=== PATIENT | male | born 1995 | race Caucasian/White ===

== ENCOUNTER 2017-11-07 19:34 | Emergency (ER) | payer OTHER ==
[2017-11-07 19:45] VITALS: BP 151/88
--- NOTE | 2017-11-07 20:01 | ED Physician Documentation ---
PD HPI NECK PAIN - Stated complaint Stated Complaint: NECK INJ - Chief complaint Chief Complaint: Back Pain - History obtained from History obtained from: Patient - History of Present Illness Timing - onset: Today (Healthy [employer] gentleman with stretching tonight and felt a pop in his neck and then his entire scalp on both sides went numb associated with feeling shaky and out of control of his hands. The numbness of his scalp bilaterally continues but the rest of his symptoms have resolved.) Review of Systems Constitutional: denies: Fever, Chills GI: denies: Abdominal Pain, Nausea, Vomiting Skin: denies: Rash, Lesions Musculoskeletal: denies: Back pain PD PAST MEDICAL HISTORY - Present Medications Home Medications: Ambulatory Orders Medication Instructions Recorded Confirmed No Known Home Medications 11/07/17 11/07/17 - Allergies Allergies/Adverse Reactions: Allergies Allergy/AdvReac Type Severity Reaction Status Date / Time No Known Drug Allergies Allergy Verified 11/07/17 19:45 PD ED PE NORMAL - Vitals Vital signs reviewed: Yes - General General: Alert and oriented X 3, No acute distress - HEENT HEENT: PERRL, EOMI, Pharynx benign - Neck Neck: Supple, no meningeal sign, No bony TTP - Neuro Neuro: Alert and oriented X 3, radiologic therapist 2-12 intact, No motor deficit, No sensory deficit, Normal speech, Other (Negative Romberg, cranial nerves normal with the exception of #1 which was not tested.) Eye Opening: Spontaneous Motor: Obeys Commands Verbal: Oriented GCS Score: 15 - Psych Psych: Normal mood, Normal affect Results - Vitals Vitals: Vital Signs - 24 hr 11/07/17 19:43 Temperature 36.5 C Heart Rate 61 Respiratory 18 Rate Blood Pressure 151/88 H O2 Saturation 95 Oxygen O2 Source Room air PD MEDICAL DECISION MAKING - Sepsis Event Vital Signs: Vital Signs - 24 hr 11/07/17 19:43 Temperature 36.5 C Heart Rate 61 Respiratory 18 Rate Blood Pressure 151/88 H O2 Saturation 95 Oxygen O2 Source Room air Departure - Departure Disposition: 01 Home, Self Care Clinical Impression: Injury of neck Qualifiers: Encounter type: initial encounter Qualified Code(s): S19.9XXA - Unspecified injury of neck, initial encounter Condition: Good Record reviewed to determine appropriate education?: Yes Instructions: ED Sprain Strain Neck Comments: Your blood pressure was elevated today on check into the emergency department. This does not mean that you have hypertension, it is a common phenomenon to come to the emergency department and have elevated blood pressure. I recommend that you see your primary care physician within the week to have it rechecked when you are feeling better.
--- NOTE | 2017-11-07 21:18 | XRAY Report ---
Reason: neck pain Procedure Date: 11/07/2017 Accession Number: [id number] / [id number] Procedure: XR - Cervical Spine 2 View CPT Code: FULL RESULT: EXAM: CERVICAL SPINE RADIOGRAPHY EXAM DATE: 11/07/2017 08:46 PM. CLINICAL HISTORY: Neck pain. COMPARISONS: None. TECHNIQUE: 3 views. FINDINGS: Alignment: Normal. No spondylolisthesis or scoliosis. Bones: The cervical vertebral bodies and posterior elements are well visualized from the skull base through C7-T1. No fractures or bone lesions. Disks: Normal. Disk heights are maintained. Facets: No degenerative disease. Soft Tissues: Normal. No prevertebral soft tissue swelling. The visualized lung apices are clear. IMPRESSION: Normal cervical spine radiography. [facility]
== END 2017-11-07 21:29 | disposition home or self-care (01) ==
LOC: ED 19:34
DX: S19.9XXA Unspecified injury of neck, initial encounter (principal); X50.1XXA Overexertion from prolonged static or awkward postures, initial encounter; R20.0 Anesthesia of skin; Y93.89 Activity, other specified; Y99.1 Military activity
CPT/HCPCS: 72040; 99282

== ENCOUNTER 2018-02-13 16:04 | Emergency (ER) | payer OTHER ==
[2018-02-13 16:11] VITALS: BP 146/80
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
== END 2018-02-13 17:09 | disposition home or self-care (01) ==
LOC: ED 16:04
DX: S92.321A Displaced fracture of second metatarsal bone, right foot, initial encounter for closed fracture (principal); W22.09XA Striking against other stationary object, initial encounter; Y93.I9 Activity, other involving external motion; Y92.828 Other wilderness area as the place of occurrence of the external cause
CPT/HCPCS: 29515; 99283

== ENCOUNTER 2018-05-25 13:04 | Emergency (ER) | payer OTHER ==
[2018-05-25 13:09] VITALS: BP 141/81
--- NOTE | 2018-05-25 13:42 | ED Physician Documentation ---
PD HPI ABD PAIN - Stated complaint Stated Complaint: MALE - Chief complaint Chief Complaint: Abd Pain - History obtained from History obtained from: Patient - History of Present Illness Timing - onset: Other (2.5 days of gradual onset right testicular pain and swelling that is worse with walking. No concern for STDs on his part. No fevers or chills. It hurts a little worse when he urinates.) Review of Systems Constitutional: denies: Fever, Chills GI: denies: Abdominal Pain, Nausea, Vomiting : reports: Dysuria. denies: Frequency, Hesitancy PD PAST MEDICAL HISTORY - Past Surgical History Past Surgical History: Yes Cardiovascular: Other - Present Medications Home Medications: Ambulatory Orders Medication Instructions Recorded Confirmed Ciprofloxacin HCl [Cipro] 500 mg PO BID #14 tablet 05/25/18 - Allergies Allergies/Adverse Reactions: Allergies Allergy/AdvReac Type Severity Reaction Status Date / Time No Known Drug Allergies Allergy Verified 05/25/18 13:09 - Social History Does the pt smoke?: No Smoking Status: Never smoker PD ED PE NORMAL - Vitals Vital signs reviewed: Yes - General General: Alert and oriented X 3, No acute distress - Abdomen Abdomen: Normal bowel sounds, Soft, Non tender - Male Male : Other (Right testicle is mildly tender especially superiorly, normal lie and normal cremaster reflexes. I do not appreciate any redness.) - Neuro Neuro: Alert and oriented X 3, Normal speech - Psych Psych: Normal mood, Normal affect Results - Vitals Vitals: Vital Signs - 24 hr 05/25/18 13:07 Temperature 36.2 C L Heart Rate 71 Respiratory 15 Rate Blood Pressure 141/81 H O2 Saturation 99 Oxygen O2 Source Room air - Labs Labs: Laboratory Tests 05/25/18 05/25/18 05/25/18 13:25 13:45 13:45 WBC 6.6 RBC 4.98 Hgb 15.4 Hct 44.3 MCV 88.9 MCH 30.9 MCHC 34.7 RDW 12.7 Plt Count 195 MPV 8.4 Neut # (Auto) 4.4 Lymph # (Auto) 1.7 [place] # (Auto) 0.4 Eos # (Auto) 0.1 Baso # (Auto) 0.0 Absolute Nucleated RBC 0.00 Nucleated RBC % 0.0 Sodium 137 Potassium 3.9 Chloride 101 Carbon Dioxide 27 Anion Gap 9.0 BUN 18 Creatinine 0.9 Estimated GFR (MDRD) 105 Glucose 100 Calcium 9.4 Total Bilirubin 1.1 H AST 30 ALT 33 Alkaline Phosphatase 73 Total Protein 7.3 Albumin 4.7 Globulin 2.6 Albumin/Globulin Ratio 1.8 Lipase 32 Urine Color YELLOW Urine Clarity CLEAR Urine pH 6.0 Ur Specific [place] 1.010 Urine Protein NEGATIVE Urine Glucose (UA) NEGATIVE Urine Ketones NEGATIVE Urine Occult Blood NEGATIVE Urine Nitrite NEGATIVE Urine Bilirubin NEGATIVE Urine Urobilinogen 0.2 (NORMAL) Ur Leukocyte Esterase NEGATIVE Ur Microscopic Review NOT INDICATED Urine Culture Comments NOT INDICATED - Rads (name of study) Testicular sono Radiology: EMP read contemporaneously (normal) PD MEDICAL DECISION MAKING - ED course ED course: 22-year-old gentleman with right testicular pain most consistent with epididymitis. His ultrasound is negative, will treat for the clinical diagnosis. The history, physical, and ultrasound are inconsistent with torsion. Departure - Departure Disposition: 01 Home, Self Care Clinical Impression: Testicular pain, right Condition: Good Record reviewed to determine appropriate education?: Yes Instructions: ED Epididymitis Prescriptions: Ciprofloxacin HCl [Cipro] 500 mg PO BID #14 tablet Comments: As discussed this seems like clinical epididymitis. Your ultrasound is negative. Return for new or worsening symptoms or if pain is uncontrolled. [place] if not [place]. Your blood pressure was elevated today on check into the emergency department. This does not mean that you have hypertension, it is a common phenomenon to come to the emergency department and have elevated blood pressure. I recommend that you see your primary care physician within the week to have it rechecked when you are feeling better.
[2018-05-25 13:50] LABS: BASOPHILS % (AUTO) 0.6 %; EOSINOPHILS # (AUTO) 0.1 10^3/uL (0.0-0.7); EOSINOPHILS % (AUTO) 1.5 %; HGB - HEMOGLOBIN 15.4 g/dL (14.0-18.0); LYMPHOCYTES # (AUTO) 1.7 10^3/uL (1.5-3.5); LYMPHOCYTES % (AUTO) 26.3 %; MEAN CORPUSCULAR HEMOGLOBIN 30.9 pg (27.0-31.0); MEAN CORPUSCULAR HGB CONC 34.7 g/dL (32.0-36.0); MEAN CORPUSCULAR VOLUME 88.9 fL (80.0-94.0); MEAN PLATELET VOLUME 8.4 fL (7.4-11.4); MONOCYTES # (AUTO) 0.4 10^3/uL (0.0-1.0); MONOCYTES % (AUTO) 5.7 %; NEUTROPHILS # (AUTO) 4.4 10^3/uL (1.5-6.6); NEUTROPHILS % (AUTO) 65.9 %; PLT - PLATELET COUNT 195 10^3/uL (130-450); RED BLOOD COUNT 4.98 10^6/uL (4.70-6.10); RED CELL DISTRIBUTION WIDTH 12.7 % (12.0-15.0); WHITE BLOOD COUNT 6.6 x10^3/uL (4.8-10.8)
[2018-05-25 13:51] LABS: BILIRUBIN,URINE NEGATIVE (NEGATIVE); GLUCOSE, URINE (UA) NEGATIVE (NEGATIVE); KETONES,URINE (UA) NEGATIVE (NEGATIVE); LEUKOCYTE ESTERASE, URINE NEGATIVE (NEGATIVE); NITRITE,URINE NEGATIVE (NEGATIVE); OCCULT BLOOD,URINE NEGATIVE (NEGATIVE); PROTEIN,URINE NEGATIVE (NEGATIVE); UROBILINOGEN,URINE 0.2 (NORMAL) E.U./dL (NORMAL)
[2018-05-25 13:53] LABS: CLARITY,URINE CLEAR (CLEAR)
[2018-05-25 14:06] LABS: ALBUMIN 4.7 g/dL (3.2-5.5); ALBUMIN/GLOBULIN RATIO 1.8 (1.0-2.2); BILIRUBIN,TOTAL 1.1 mg/dL (0.2-1.0); CALCIUM 9.4 mg/dL (8.5-10.3); CREATININE 0.9 mg/dL (0.6-1.2); TOTAL PROTEIN 7.3 g/dL (6.7-8.2)
--- NOTE | 2018-05-25 15:02 | Ultrasound Report ---
Reason: R testicular pain Procedure Date: 05/25/2018 Accession Number: [id number] / [id number] Procedure: US - Testicle w/Doppler CPT Code: FULL RESULT: EXAM: SCROTAL ULTRASOUND EXAM DATE: 05/25/2018 02:27 PM. CLINICAL HISTORY: Right testicular pain. COMPARISON: None. TECHNIQUE: Real-time scanning was performed with static images obtained. Color-flow images were utilized. FINDINGS: Right: Testis: 4.8 x 3.3 x 3.1 cm. Normal size and echotexture. No mass, calcification, or abnormal blood flow. Epididymis: .87 x 3.3 x 1.5 cm. Normal size and echotexture. No mass or abnormal blood flow. Hydrocele: Small hydrocele. Varicocele: None. Left: Testis: 4.8 x 3.7 x 2.7 cm. Normal size. No mass, calcification or abnormal blood flow. Mildly heterogeneous. Epididymis: .57 x 1.6 x 1.6 cm. Normal size and echotexture. No mass or abnormal blood flow. Hydrocele: Small hydrocele. Varicocele: Small left varicoceles are noted. IMPRESSION: 1. No testicular mass or torsion. 2. Both epididymis are normal. 3. Small bilateral hydroceles. Small left varicoceles. No right-sided varicoceles. [facility]
[2018-05-25] MEDS ORDERED: CIPROFLOXACIN 250 MG TABLET PO STA (15:11)
== END 2018-05-25 15:25 | disposition home or self-care (01) ==
LOC: ED 13:04
DX: N50.811 Right testicular pain (principal)
CPT/HCPCS: 36415; 76870; 80053; 81003; 83690; 85025; 87491; 87591; 93975; 99283; A9270; 81001; 87086

== ENCOUNTER 2019-01-10 15:56 | Emergency (ER) | payer OTHER ==
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
--- NOTE | 2019-01-10 17:00 | XRAY Report ---
Reason: chest pain Procedure Date: 01/10/2019 Accession Number: [id number] / [id number] Procedure: XR - Chest 1 View X-Ray CPT Code: 53416 Final Report FULL RESULT: EXAM: CHEST RADIOGRAPHY EXAM DATE: 01/10/2019 03:45 PM. CLINICAL HISTORY: Chest pain. COMPARISON: None. TECHNIQUE: 1 view. FINDINGS: Lungs/Pleura: No focal opacities evident. No pleural effusion. No pneumothorax. Mediastinum: Within exam limitations, the cardiomediastinal contour is normal. Other: None. IMPRESSION: No focal consolidation. [facility]
[2019-01-10 17:39] VITALS: BP 143/93
== END 2019-01-10 18:09 | disposition home or self-care (01) ==
LOC: EDUNIT# → ED 15:56
DX: T70.0XXA Otitic barotrauma, initial encounter (principal); R06.00 Dyspnea, unspecified; W38.XXXA Explosion and rupture of other specified pressurized devices, initial encounter; Y93.89 Activity, other specified; Y92.139 Unspecified place military base as the place of occurrence of the external cause; Y99.1 Military activity
CPT/HCPCS: 71045; 99283; 99284